=== PATIENT | male | born 1960 | race Caucasian/White ===

== ENCOUNTER → 2018-06-12 | Outpatient (CLI) | payer BC ==
--- NOTE | 2018-06-12 13:03 | US ---
EXAMINATION TYPE: US venous doppler duplex LE LT DATE OF EXAM: 06/12/2018 12:45 PM COMPARISON: NONE CLINICAL HISTORY: [id number] Pain in left foot. Edema and pain left foot SIDE PERFORMED: Left TECHNIQUE: The lower extremity deep venous system is examined utilizing real time linear array sonog hosea with graded compression, doppler sonography and color-flow sonography. VESSELS IMAGED: External Iliac Vein (EIV) Common Femoral Vein Deep Femoral Vein Greater Saphenous Vein * Femoral Vein Popliteal Vein Small Saphenous Vein * Proximal Calf Veins (* superficial vessels) Left Leg: No evidence of DVT as visualized Grayscale, color doppler, spectral doppler imaging performed of the deep veins of the left lower ext remity. There is normal flow, compressibility, vascular waveforms. IMPRESSION: No ultrasound evidence for acute DVT in the left lower extremity.
== END ==
LOC: RADUSWWP 12:07
PROVIDERS: ATTEND Family Medicine
DX: M79.672 Pain in left foot (principal)

== ENCOUNTER → 2020-02-25 | Day surgery (SDC) | payer BC ==
[2020-02-23 14:32] VITALS: BMI 25.7
[~2020-02-25] MED LIST: LACTATED RINGERS 1,000 ML IV SCH; LIDOCAINE 1% (10MG/ML) FOR IV START INTRADERMA PRN; LIDOCAINE 1% INJ 10MG/ML (20 ML MDV) ONE; PROPOFOL 10 MG/ML 20 ML VIAL IV ONE
[2020-02-25 10:16] VITALS: RESP 16; TEMP 97.8
--- NOTE | 2020-02-25 11:11 | P.GSHP ---
History of Present Illness H&P Date: 02/25/20 Chief Complaint: Screening colonoscopy Is a 59-year-old male presents today for screening colonoscopy. Patient denies any significant GI complaints. Past Medical History Past Medical History: No Reported History History of Any Multi-Drug Resistant Organisms: None Reported Past Surgical History: Hernia Repair, Orthopedic Surgery Additional Past Surgical History / Comment(s): elbow repair Past Anesthesia/Blood Transfusion Reactions: No Reported Reaction Smoking Status: Former smoker - Past Family History Mother Family Medical History: Cancer Medications and Allergies Home Medications Medication Instructions Recorded Confirmed Type No Known Home Medications 02/23/20 02/25/20 History Allergies Allergy/AdvReac Type Severity Reaction Status Date / Time No Known Allergies Allergy Verified 02/25/20 10:11 Surgical - Exam Vital Signs Temp Pulse Resp Pulse Ox 97.8 F 72 16 96 02/25/20 10:13 02/25/20 10:13 02/25/20 10:13 02/25/20 10:13 - General well developed, well nourished, no distress - Eyes PERRL - ENT normal pinna - Neck no masses - Respiratory normal expansion - Cardiovascular Rhythm: regular - Abdomen Abdomen: soft, non tender Assessment and Plan Plan: We'll perform screening colonoscopy.
--- NOTE | 2020-02-25 11:29 | P.OP ---
Date of Procedure: 02/25/20 Preoperative Diagnosis: Screening colonoscopy Postoperative Diagnosis: Diverticulosis Procedure(s) Performed: Colonoscopy Anesthesia: MAC Surgeon: Stephen Smith Pathology: none sent Condition: stable Disposition: PACU Description of Procedure: The patient's placed on the endoscopy table in the lateral position. He received IV sedation. Digital rectal exam was performed which revealed no abnormalities. The prostate was symmetrical without nodules. The colonoscope was then placed patient anus and passed throughout the entire colon. The ileocecal valve was visualized. The cecum, ascending and transverse colon appeared normal. In the descending and sigmoid colon there; was mild diverticular changes. Scope was then brought back the rectum and this appeared normal. Scope was withdrawn for patient.
[2020-02-25 11:53] VITALS: BP 125/86; PULSE 60
== END | disposition home or self-care (01) ==
LOC: ORWHC2ENDO 09:51
PROVIDERS: ATTEND Surgery
DX: Z12.11 Encounter for screening for malignant neoplasm of colon (principal); K57.30 Diverticulosis of large intestine without perforation or abscess without bleeding; Z87.19 Personal history of other diseases of the digestive system; Z98.890 Other specified postprocedural states; Z87.891 Personal history of nicotine dependence
CPT/HCPCS: J2001; J2704; G0121

== ENCOUNTER → 2020-11-18 | Outpatient (CLI) | payer BC ==
[2020-11-18 18:32] LABS: HCT 40.4 % (39.6-50.0); HGB 13.6 g/dL (13.0-17.0); MCH 31.8 pg (27.0-32.0); MCHC 33.7 g/dL (32.0-37.0); MCV 94.4 fL (80.0-97.0); Mean Platelet Volume 11.7 fL (9.5-12.2); Platelet Count 206 X 10*3/uL (140-440); RBC 4.28 X 10*6/uL (4.40-5.60); RDW 13.1 % (11.5-14.5); WBC 5.44 X 10*3/uL (4.50-10.00)
[2020-11-18 20:31] LABS: Hemoglobin A1C 5.2 % (4.0-6.0)
[2020-11-18 22:25] LABS: Chol/HDL Ratio 5.64; LDL Cholesterol,Calculated 135.2 mg/dL (0.0-131.0); Protein, Total 6.9 g/dL (6.2-8.2); VLDL Calculation 17.8 mg/dL (5.00-40.00)
[2020-11-18 22:26] LABS: African American GFR (CKD) 93.1 (60.0-200.0); Albumin 4.5 g/dL (3.80-4.90); Albumin/Globulin Ratio 1.8 (1.60-3.17); Anion Gap 7.7 mmol/L (4.00-12.00); Calcium 8.5 mg/dL (8.7-10.3); Carbon Dioxide 26.3 mmol/L (21.6-31.8); Globulin 2.5 g/dL (1.6-3.3); Non-African American GFR(CKD) 80.3 (60.0-200.0); Potassium 4.3 mmol/L (3.5-5.5); Total Bilirubin 1.2 mg/dL (0.2-1.2)
[2020-11-21 14:21] LABS: Albumin 4.44 g/dL (3.80-4.90); Gamma Globulin 0.85 g/dL (0.70-1.50)
== END | disposition home or self-care (01) ==
LOC: LABWHC1 11:52
PROVIDERS: ATTEND Family Medicine
DX: K57.90 Diverticulosis of intestine, part unspecified, without perforation or abscess without bleeding (principal); R10.9 Unspecified abdominal pain; R19.7 Diarrhea, unspecified
CPT/HCPCS: 36415; 80053; 80061; 82150; 83036; 83690; 84165; 84443; 85027

== ENCOUNTER → 2020-11-30 | Outpatient (CLI) | payer BC ==
--- NOTE | 2020-11-30 19:41 | CT ---
EXAMINATION TYPE: CT abdomen pelvis w con DATE OF EXAM: 11/30/2020 COMPARISON: 08/07/2013 HISTORY: 60-year-old male with abdominal and back pain CT DLP: 881.40 mGycm Automated exposure control for dose reduction was used. TECHNIQUE: Helical acquisition of images was performed from the lung bases through the pelvis. CONTRAST: Performed with Oral Contrast and with IV Contrast, patient injected with 100 mL of Isovue 300. FINDINGS: LUNG BASES: No significant abnormality is appreciated. LIVER/GB: Subcentimeter hypoattenuating lesion the right hepatic lobe posteriorly too small to visual ize likely on the basis of cyst. Otherwise the liver is unremarkable. Hypoattenuating lesions in the gallbladder lumen representing cholelithiasis. No biliary ductal dilatation. PANCREAS: No significant abnormality is seen. SPLEEN: Multiple calcific foci within the splenic parenchyma likely related to remote granulomatous i nfection ADRENALS: No significant abnormality is seen. KIDNEYS: There is a 1.5 x 1.4 x 1.3 cm hypoattenuating nonenhancing oval-shaped fluid density lesion in the pole of the left kidney likely representing a cyst. There are tiny 1 to 2 mm right renal colle cting system hyperdense foci. There is no hydronephrosis. The bilateral renal parenchyma demonstrate normal enhancement pattern. FREE AIR: No free air is visualized. RETROPERITONEAL ADENOPATHY: None visualized REPRODUCTIVE ORGANS: Scattered calcifications in the bilateral inguinal canal likely vascular. URINARY BLADDER: No significant abnormality is seen. PELVIC ADENOPATHY: None visualized. OSSEOUS STRUCTURES: No significant abnormality is seen. BOWEL: There is a small gastroesophageal hiatal hernia. There is no obstruction. Descending and sigm oid diverticulosis evident with no significant surrounding fat stranding fluid or abscess. The append ix appears normal. Aorta is nonaneurysmal. Atherosclerotic calcifications are seen in the wall of the aorta and involve the aortic bifurcation. Dsfo-[id number]-[id number] narrowing seen at L4-5 and L5-S1 with facet joint arthropathy changes at the same le keiko. No significant soft tissue abnormality. IMPRESSION: 1. NO EVIDENCE OF ACUTE ABDOMINAL OR PELVIC ABNORMALITY. 2. DIVERTICULOSIS WITH NO DEFINITE EVIDENCE OF ACUTE DIVERTICULITIS. 3. RIGHT RENAL 1-2 MM NONOBSTRUCTIVE CALCULI VERSUS VASCULAR CALCIFICATIONS. 4. CHOLELITHIASIS WITHOUT CT EVIDENCE OF ACUTE CHOLECYSTITIS. 5. INTERVAL DEVELOPMENT OF SPLENIC CALCIFICATIONS LIKELY SEQUELA OF GRANULOMATOUS INFECTION.
== END | disposition home or self-care (01) ==
LOC: RADCTMAIN 16:21
PROVIDERS: ATTEND Family Medicine
DX: K57.90 Diverticulosis of intestine, part unspecified, without perforation or abscess without bleeding (principal); K80.20 Calculus of gallbladder without cholecystitis without obstruction; D73.89 Other diseases of spleen
CPT/HCPCS: 74177; Q9967